=== PATIENT | male | born 1970 | race Caucasian/White ===

== ENCOUNTER 2018-03-11 15:54 | Observation (INO) | payer OTHER, SELFPAY ==
[2018-03-11] MEDS ORDERED: MORPHINE 4 MG/ML SYR ONE (17:44)
[2018-03-11] MEDS ORDERED: NS KCL 20MEQ 1,000 ML IV ONE (17:45)
[2018-03-11] MEDS ORDERED: ONDANSETRON 4 MG/2 ML VIAL ONE ×2 (17:45→20:37)
[2018-03-11 17:56] LABS: Urine Blood NEGATIVE (NEG); Urine Glucose NEGATIVE (NEG); Urine Protein NEGATIVE (NEG); Urine Specific Gravity 1.025 (1.005-1.030)
[2018-03-11 18:24] LABS: Urine Culture Reflex Order NOT NEEDED; Urine RBC <5 /HPF (NONE SEEN)
[2018-03-11 18:25] LABS: Urine Bacteria NONE SEEN /HPF (NONE SEEN)
[2018-03-11 19:05] LABS: Absolute Lymphocytes (CBC) 3.1 K/uL (0.7-4.9); Absolute Monocytes 0.6 K/uL (0.1-1.3); Absolute Neutrophil 4.3 K/uL (1.8-8.0); Basophils % 0.9 % (0-1.3); Eosinophils % 1.6 % (0-4.4); Hematocrit 47.7 % (39.6-49.0); Lymphocytes % 37.9 % (15.3-44.8); MCH 31.1 pg (27.0-35.0); MCV 92.5 fL (80-100); MPV 7.9 fL (7.6-11.3); Monocytes % 6.8 % (3.3-12.3); RBC Red Blood Cell Count 5.16 M/uL (4.33-5.43)
[2018-03-11 19:17] LABS: Potassium 3.8 mEq/L (3.6-5.0)
[2018-03-11 19:23] LABS: Albumin 4.6 g/dL (3.2-5.5); Bilirubin Direct 0.1 mg/dL (0-0.2); Bilirubin Total 0.6 mg/dL (0.3-1.2)
--- NOTE | 2018-03-11 20:11 | RAD REPORT ---
EXAM DESCRIPTION: CT - Abdomen Pelvis W Contrast - 03/11/2018 7:56 pm CLINICAL HISTORY: Abdominal pain. Epigastric pain for 1 month with nausea COMPARISON: None. TECHNIQUE: Computed axial tomography of the abdomen and pelvis was obtained. 100 cc Isovue-300 is ad ministered intravenously. Oral contrast was given. All CT scans are performed using dose optimization technique as appropriate and may include automated exposure control or mA/KV adjustment according to patient size. FINDINGS: The liver has a diminished attenuation consistent with fatty infiltration. Spleen, pancreas, adrenals and kidneys appear unremarkable. The appendix is not seen. There is no evidence of diverticulitis. The wall of the terminal ileum is borderline thickened. A small left inguinal hernia contains fat IMPRESSION: Borderline thickening of the wall of the terminal ileum may indicate inflammation
--- NOTE | 2018-03-11 20:32 | EDPHYS ---
Physician Documentation [facility] Name: Yrn Chakraborty Age: 47 yrs Sex: Male : 1970 Arrival Date: 03/11/2018 Time: 15:57 Bed 13 Private MD: Jose Luis Lopez ED Physician Herman Palma HPI: 03/11 18:36 This 47 yrs old Male presents to ER via Ambulatory with complaints of kdr Abdominal Pain. 18:36 The patient presents with abdominal pain in the epigastric area, in the upper abdomen. kdr Onset: The symptoms/episode began/occurred gradually, 1 month(s) ago, Has been intermittent but getting worse for about a month. The symptoms do not radiate. Associated signs and symptoms: Pertinent positives: nausea, Pertinent negatives: anorexia, blood in stools, chest pain, constipation, diarrhea, dysuria, fever, headache, hematuria, palpitations, shortness of breath, testicular pain. The symptoms are described as achy, burning, dull, intermittent, vague, waxing/waning. Modifying factors: The symptoms are alleviated by nothing, the symptoms are aggravated by food. Severity of pain: At its worst the pain was mild moderate just prior to arrival, in the emergency department the pain has improved moderately. The patient has experienced similar episodes in the past, a few times, Only in the last month. The patient has not recently seen a physician. 18:41 The patient reports a history of colitis about 20 years ago but none since. kdr Historical: - Allergies: 16:37 No Known Allergies; aj - PMHx: 16:37 Hypertension; aj - PSHx: 16:37 Cholecystectomy; elbow; wrists; Knee surgery; aj - Immunization history:: Adult Immunizations up to date. - Social history:: Smoking status: Patient/guardian denies using tobacco. ROS: 18:36 Constitutional: Negative for fever, chills, and weight loss, Eyes: Negative for injury, kdr pain, redness, and discharge, ENT: Negative for injury, pain, and discharge, Neck: Negative for injury, pain, and swelling, Cardiovascular: Negative for chest pain, palpitations, and edema, Respiratory: Negative for shortness of breath, cough, wheezing, and pleuritic chest pain, Back: Negative for injury and pain, : Negative for injury, bleeding, discharge, and swelling, MS/Extremity: Negative for injury and deformity, Skin: Negative for injury, rash, and discoloration, Neuro: Negative for headache, weakness, numbness, tingling, and seizure activity. Psych: Negative for depression, anxiety, suicide ideation, homicidal ideation, and hallucinations, Allergy/Immunology: Negative for hives, rash, and allergies, Endocrine: Negative for neck swelling, polydipsia, polyuria, polyphagia, and marked weight changes, Hematologic/Lymphatic: Negative for swollen nodes, abnormal bleeding, and unusual bruising. 18:36 Abdomen/GI: Positive for abdominal pain, nausea, diarrhea, abdominal cramps, Negative for constipation, abdominal distension, black/tarry stool, rectal pain, rectal bleeding, bowel incontinence. Exam: 18:36 Constitutional: This is a well developed, well nourished patient who is awake, alert, kdr and in no acute distress. Head/Face: Normocephalic, atraumatic. Eyes: Pupils equal round and reactive to light, extra-ocular motions intact. Lids and lashes normal. Conjunctiva and sclera are non-icteric and not injected. Cornea within normal limits. Periorbital areas with no swelling, redness, or edema. Neck: Trachea midline, no thyromegaly or masses palpated, and no cervical lymphadenopathy. Supple, full range of motion without nuchal rigidity, or vertebral point tenderness. No Meningismus. Chest/axilla: Normal chest wall appearance and motion. Nontender with no deformity. No lesions are appreciated. Cardiovascular: Regular rate and rhythm with a normal S1 and S2. No gallops, murmurs, or rubs. Normal PMI, no JVD. No pulse deficits. Respiratory: Lungs have equal breath sounds bilaterally, clear to auscultation and percussion. No rales, rhonchi or wheezes noted. No increased work of breathing, no retractions or nasal flaring. Back: No spinal tenderness. No costovertebral tenderness. Full range of motion. Skin: Warm, dry with normal turgor. Normal color with no rashes, no lesions, and no evidence of cellulitis. MS/ Extremity: Pulses equal, no cyanosis. Neurovascular intact. Full, normal range of motion. Neuro: Awake and alert, GCS 15, oriented to person, place, time, and situation. Cranial nerves II-XII grossly intact. Motor strength 5/5 in all extremities. Sensory grossly intact. Cerebellar exam normal. Normal gait. Psych: Awake, alert, with orientation to person, place and time. Behavior, mood, and affect are within normal limits. 18:36 Abdomen/GI: Inspection: abdomen appears normal, Bowel sounds: active, diminished, in all quadrants, Palpation: soft, mild abdominal tenderness, in the right upper quadrant and left upper quadrant, mass, is not appreciated, rebound tenderness, is not appreciated, voluntary guarding, is not appreciated, involuntary guarding, is not appreciated. Vital Signs: 16:37 BP 134 / 87; Pulse 94; Resp 20; Temp 97.5; Pulse Ox 96% on R/A; Weight 113.4 kg; Height aj 5 ft. 10 in. (177.80 cm); Pain 5/10; 18:40 BP 142 / 82; Pulse 90; Resp 18; Pulse Ox 98% on R/A; Pain 5/10; sg 20:15 BP 126 / 89; Pulse 66; Resp 18; Pulse Ox 97% on R/A; ea 21:00 BP 120 / 78; Pulse 68; Resp 18 S; Pulse Ox 99% on R/A; ea 22:00 BP 128 / 70; Pulse 68; Resp 18; Pulse Ox 99% on R/A; ea 23:40 BP 130 / 80; Pulse 70; Resp 19; Pulse Ox 100% on R/A; ea 16:37 Body Mass Index 35.87 (113.40 kg, 177.80 cm) MDM: 19:52 Patient medically screened. [facility] 03/12 11:42 Data reviewed: vital signs, nurses notes. Counseling: I had a detailed discussion with [facility] the patient and/or guardian regarding: the historical points, exam findings, and any diagnostic results supporting the discharge/admit diagnosis, lab results, radiology results. 03/11 17:29 Order name: Amylase, Serum; Complete Time: 19:24 [facility] 03/11 17:29 Order name: Basic Metabolic Panel; Complete Time: 19:24 [facility] 03/11 17:29 Order name: CBC with Diff; Complete Time: 19:24 [facility] 03/11 17:29 Order name: Creatinine for Radiology; Complete Time: 19:24 [facility] 03/11 17:29 Order name: Hepatic Function; Complete Time: 19:24 [facility] 03/11 17:29 Order name: Lipase; Complete Time: 19:24 kdr 03/11 17:29 Order name: Urine Microscopic Only; Complete Time: 18:35 kdr 03/11 17:40 Order name: Troponin (emerg Dept Use Only); Complete Time: 19:24 kdr 03/11 17:40 Order name: CT Abd/Pelvis - W/Contrast; Complete Time: 20:27 kdr 03/11 17:54 Order name: Urine Dipstick--Ancillary (enter results); Complete Time: 18:35 em1 03/11 17:29 Order name: IV Saline Lock; Complete Time: 17:42 kdr 03/11 17:29 Order name: Labs collected and sent; Complete Time: 17:42 kdr 03/11 17:29 Order name: Urine Dipstick-Ancillary (obtain specimen); Complete Time: 17:52 kdr 03/11 17:40 Order name: EKG Strip; Complete Time: 19:04 kdr 03/11 17:55 Order name: EKG Electrocardiogram EDMS 03/11 20:36 Order name: CONS Physician Consult EDMS Administered Medications: 03/11 18:51 Drug: morphine 4 mg Route: IVP; Site: right antecubital; iw 19:00 Follow up: Response: No adverse reaction; Pain is decreased ea 18:51 Drug: Zofran 4 mg Route: IVP; Site: right antecubital; iw 19:00 Follow up: Response: No adverse reaction ea 18:55 Drug: NS 0.45 % with KCl 20 mEq/L 1000 ml Route: IV; Rate: 125 ml/hr; Site: right sg antecubital; 20:35 Drug: Pepcid 20 mg Route: IVP; Site: right antecubital; ea 21:00 Follow up: Response: No adverse reaction ea 20:35 Drug: fentaNYL (PF) 50 mcg Route: IVP; Site: right antecubital; ea 21:00 Follow up: Response: No adverse reaction; Pain is decreased ea 20:35 Drug: Zofran 4 mg Route: IVP; Site: right antecubital; ea 21:00 Follow up: Response: No adverse reaction ea 20:35 Drug: Flagyl 500 mg Volume: 100 ml; Route: IVPB; Rate: 200 ml/hr; Infused Over: 30 ea mins; Site: right antecubital; 20:35 Drug: NS 0.9% 1000 ml Route: IV; Rate: 1 bolus; Site: right antecubital; ea 22:40 Follow up: Response: No adverse reaction; IV Status: Completed infusion ea 22:41 Drug: Cipro 400 mg Volume: 200 ml; Route: IVPB; Infused Over: 60 mins; Site: right ea antecubital; 23:00 Drug: fentaNYL (PF) 50 mcg Route: IVP; Site: right antecubital; ea 23:30 Follow up: Response: No adverse reaction; Pain is decreased ea Disposition: 03/11/18 20:32 Hospitalization ordered by Petra Merino for Observation. Preliminary diagnosis are Abdominal tenderness, Other and unspecified noninfective gastroenteritis and colitis. - Bed requested for Telemetry/MedSurg (observation). - Status is Observation. ea - Condition is Stable. - Problem is new. - Symptoms have improved. UTI on Admission? No Signatures: Dispatcher [employer] EDMS Shira Penaloza RN RN kl Gay, Steven RN Tanvi Montgomery RN Herman Gamez MD MD cha Rittger, Kevin, MD MD kdr Williams, Irene, RN RN iw Antunez, Elena, RN RN ea Corrections: (The following items were deleted from the chart) 22:36 20:32 Hospitalization Ordered by Petra Merino MD for Observation. Preliminary diagnosis is Abdominal tenderness; Other and unspecified noninfective gastroenteritis and colitis. Bed requested for Telemetry/MedSurg (observation). Status is Observation. Condition is Stable. Problem is new. Symptoms have improved. UTI on Admission? No. rosas 03/12 00:10 03/11 22:36 03/11/2018 20:32 Hospitalization Ordered by Petra Merino MD for ea Observation. Preliminary diagnosis is Abdominal tenderness; Other and unspecified noninfective gastroenteritis and colitis. Bed requested for Telemetry/MedSurg (observation). Status is Observation. Condition is Stable. Problem is new. Symptoms have improved. UTI on Admission? No. willie
--- NOTE | 2018-03-11 20:32 | ER ---
Nurse's Notes [facility] Name: Yrn Chakraborty Age: 47 yrs Sex: Male : 1970 Arrival Date: 03/11/2018 Time: 15:57 Bed 13 Private MD: Jose Luis Lopez Diagnosis: Abdominal tenderness;Other and unspecified noninfective gastroenteritis and colitis Presentation: 03/11 16:36 Presenting complaint: Patient states: Epigastric pain for 1 month with nausea and aj sweating that is worse after eating. Transition of care: patient was not received from another setting of care. Onset of symptoms was February 09, 2018. Care prior to arrival: None. 16:36 Method Of Arrival: Ambulatory aj 16:36 Acuity: PATSY 3 aj 19:58 Initial Sepsis Screen: Does the patient meet any 2 criteria? No. Patient's initial ea sepsis screen is negative. Does the patient have a suspected source of infection? No. Patient's initial sepsis screen is negative. Triage Assessment: 16:37 General: Appears in no apparent distress. comfortable, Behavior is calm, cooperative, aj appropriate for age. Pain: Complains of pain in epigastric area Pain currently is 5 out of 10 on a pain scale. at worst was 9 out of 10 on a pain scale. Neuro: Level of Consciousness is awake, alert, obeys commands, Oriented to person, place, time, situation, Appropriate for age. Respiratory: Airway is patent Respiratory effort is even, unlabored, Respiratory pattern is regular, symmetrical. GI: Reports upper abdominal pain, epigastric pain, nausea. Derm: Skin is intact, is healthy with good turgor, Skin is pink, warm \T\ dry. normal. Historical: - Allergies: 16:37 No Known Allergies; aj - PMHx: 16:37 Hypertension; aj - PSHx: 16:37 Cholecystectomy; elbow; wrists; Knee surgery; aj - Immunization history:: Adult Immunizations up to date. - Social history:: Smoking status: Patient/guardian denies using tobacco. Screenin:00 Abuse screen: Denies threats or abuse. Denies injuries from another. Nutritional sg screening: No deficits noted. Tuberculosis screening: No symptoms or risk factors identified. Never had TB. Fall Risk None identified. Assessment: 17:00 General: Appears in no apparent distress. comfortable, obese, well groomed, well sg developed, well nourished, Behavior is calm, cooperative, appropriate for age. Pain: Complains of pain in epigastric area Pain does not radiate. Quality of pain is described as crampy, sharp, stabbing. Neuro: No deficits noted. Cardiovascular: Heart tones S1 S2 present Capillary refill is brisk in bilateral fingers Patient's skin is warm and dry. Chest pain is denied. Respiratory: Airway is patent Respiratory effort is even, unlabored. GI: Abdomen is round obese, Bowel sounds present X 4 quads. Abd is soft X 4 quads Reports epigastric pain, nausea. : No signs and/or symptoms were reported regarding the genitourinary system. EENT: No signs and/or symptoms were reported regarding the EENT system. Derm: Skin is pink, warm \T\ dry. Musculoskeletal: No signs and/or symptoms reported regarding the musculoskeletal system. 19:04 Reassessment: pt requesting to take his PO Xanax from home, Dr. Leonardo notified and iw agrees to let pt take his home medication. 19:48 General: Appears in no apparent distress. comfortable, Behavior is calm, cooperative, ea appropriate for age. Pain: Complains of pain in left upper quadrant and right upper quadrant and epigastric area Pain does not radiate. Quality of pain is described as crampy, stabbing, Pain began one month ago. Neuro: Level of Consciousness is awake, alert, obeys commands, Oriented to person, place, time, situation. Cardiovascular: Heart tones S1 S2 present Patient's skin is warm and dry. Respiratory: Airway is patent Respiratory effort is even, unlabored. GI: Abdomen is obese, Bowel sounds present X 4 quads. Abd is soft X 4 quads Reports epigastric pain, nausea. : No signs and/or symptoms were reported regarding the genitourinary system. EENT: No signs and/or symptoms were reported regarding the EENT system. Derm: Skin is pink, warm \T\ dry. 20:30 Reassessment: Patient and/or family updated on plan of care and expected duration. Pain ea level reassessed. Patient is alert, oriented x 3, equal unlabored respirations, skin warm/dry/pink. Family at bedside. 21:45 Reassessment: Patient and/or family updated on plan of care and expected duration. Pain ea level reassessed. Patient is alert, oriented x 3, equal unlabored respirations, skin warm/dry/pink. Family at bedside. 22:00 Reassessment: Patient and/or family updated on plan of care and expected duration. Pain ea level reassessed. Patient is alert, oriented x 3, equal unlabored respirations, skin warm/dry/pink. 23:50 Reassessment: Patient and/or family updated on plan of care and expected duration. Pain ea level reassessed. Patient is alert, oriented x 3, equal unlabored respirations, skin warm/dry/pink. Report called to receiving nurse. Vital Signs: 16:37 BP 134 / 87; Pulse 94; Resp 20; Temp 97.5; Pulse Ox 96% on R/A; Weight 113.4 kg; Height aj 5 ft. 10 in. (177.80 cm); Pain 5/10; 18:40 BP 142 / 82; Pulse 90; Resp 18; Pulse Ox 98% on R/A; Pain 5/10; sg 20:15 BP 126 / 89; Pulse 66; Resp 18; Pulse Ox 97% on R/A; ea 21:00 BP 120 / 78; Pulse 68; Resp 18 S; Pulse Ox 99% on R/A; ea 22:00 BP 128 / 70; Pulse 68; Resp 18; Pulse Ox 99% on R/A; ea 23:40 BP 130 / 80; Pulse 70; Resp 19; Pulse Ox 100% on R/A; ea 16:37 Body Mass Index 35.87 (113.40 kg, 177.80 cm) ED Course: 15:57 Patient arrived in ED. rg4 15:57 Jose Luis Lopez MD is Private Physician. rg4 16:18 To Leonardo MD is Attending Physician. kdr 16:36 Triage completed. aj 16:37 Arm band placed on left wrist. Patient placed in an exam room. aj 17:19 Jonny Ash, RN is Primary Nurse. 17:52 EKG done, by power tool repair technician. reviewed by To Leonardo MD. 3 18:45 Initial lab(s) drawn, by va, sent to lab. Inserted saline lock: 20 gauge in right iw antecubital area, using aseptic technique. Blood collected. 19:52 Attending Physician role handed off by To Leonardo MD [facility] 19:52 Herman Palma MD is Attending Physician. [facility] 19:55 CT completed. Patient tolerated procedure well. Patient moved to CT. Patient moved back nj from CT. 19:55 Patient has correct armband on for positive identification. Placed in gown. Bed in low ea position. Call light in reach. Side rails up X 1. 19:56 CT Abd/Pelvis - W/Contrast In Process Unspecified. EDMS 20:24 Rose Lujan RN is Primary Nurse. ea 20:29 Petra Merino MD is Hospitalizing Provider. [facility] 03/12 00:00 No provider procedures requiring assistance completed. Patient admitted, IV remains in ea place. Administered Medications: 16 18:51 Drug: morphine 4 mg Route: IVP; Site: right antecubital; iw 19:00 Follow up: Response: No adverse reaction; Pain is decreased ea 18:51 Drug: Zofran 4 mg Route: IVP; Site: right antecubital; iw 19:00 Follow up: Response: No adverse reaction 18:55 Drug: NS 0.45 % with KCl 20 mEq/L 1000 ml Route: IV; Rate: 125 ml/hr; Site: right sg antecubital; 20:35 Drug: Pepcid 20 mg Route: IVP; Site: right antecubital; ea 21:00 Follow up: Response: No adverse reaction ea 20:35 Drug: fentaNYL (PF) 50 mcg Route: IVP; Site: right antecubital; ea 21:00 Follow up: Response: No adverse reaction; Pain is decreased ea 20:35 Drug: Zofran 4 mg Route: IVP; Site: right antecubital; ea 21:00 Follow up: Response: No adverse reaction ea 20:35 Drug: Flagyl 500 mg Volume: 100 ml; Route: IVPB; Rate: 200 ml/hr; Infused Over: 30 ea mins; Site: right antecubital; 20:35 Drug: NS 0.9% 1000 ml Route: IV; Rate: 1 bolus; Site: right antecubital; ea 22:40 Follow up: Response: No adverse reaction; IV Status: Completed infusion ea 22:41 Drug: Cipro 400 mg Volume: 200 ml; Route: IVPB; Infused Over: 60 mins; Site: right ea antecubital; 23:00 Drug: fentaNYL (PF) 50 mcg Route: IVP; Site: right antecubital; ea 23:30 Follow up: Response: No adverse reaction; Pain is decreased ea Outcome: 20:32 Decision to Hospitalize by Provider. rosas 03/12 00:00 Admitted to Med/surg accompanied by tech, via stretcher, Report called to Receiving ea nurse Condition: stable Instructed on the need for admit. 00:10 Patient left the ED. ea Signatures: Dispatcher [employer] EDJonny Layton, RN Tanvi Montgomery RN RN aj Anderson, Corey, MD MD cha Rittger, Kevin, MD MD kdr Williams, Irene, RN RN iw Garcia, Lauren rg4 Gilles Rg Elena RN Nikki Hahn ea 3
[2018-03-11] MEDS ORDERED: FENTANYL CITR 100 MCG/2 ML ONE ×2 (20:36→22:52)
[2018-03-11] MEDS ORDERED: NA CHLORIDE 0.9% 1,000 ML ONE (20:36)
[2018-03-11] MEDS ORDERED: METRONIDAZOLE 500mg IVPB 500 MG/100 ML BAG IV ONE (20:37)
[2018-03-11] MEDS ORDERED: CIPROFLOXACIN 400mg IV 400 MG/200 ML BAG IV ONE (20:37)
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
[2018-03-12 00:06] VITALS: BMI 36.5
[2018-03-12] MEDS ORDERED: NA CHLORIDE 0.9% 1,000 ML IV SCH (00:23)
[2018-03-12] MEDS ORDERED: ZOLPIDEM TARTRATE 5 MG TABLET PO ONE (01:27)
[2018-03-12] MEDS: ONDANSETRON 4 MG/2 ML VIAL IV PRN ×2 (01:48→08:10)
[2018-03-12] MEDS: METRONIDAZOLE 500mg IVPB 500 MG/100 ML BAG IV SCH ×2 (01:48→09:33)
[2018-03-12] MEDS: Morphine 2 MG/2 ML SYR IV PRN ×2 (01:48→08:09)
[2018-03-12 03:42] VITALS: O2SAT 95
[2018-03-12 04:07] LABS: Absolute Lymphocytes (CBC) 2.5 K/uL (0.7-4.9); Absolute Monocytes 0.5 K/uL (0.1-1.3); Absolute Neutrophil 3.1 K/uL (1.8-8.0); Basophils % 1.1 % (0-1.3); Eosinophils % 2.4 % (0-4.4); Hematocrit 42.9 % (39.6-49.0); Lymphocytes % 40.4 % (15.3-44.8); MCH 30.7 pg (27.0-35.0); MCV 92.1 fL (80-100); Monocytes % 7.2 % (3.3-12.3); RBC Red Blood Cell Count 4.65 M/uL (4.33-5.43)
[2018-03-12 04:46] LABS: Albumin 3.5 g/dL (3.2-5.5); Bilirubin Total 0.7 mg/dL (0.3-1.2); Potassium 3.7 mEq/L (3.6-5.0); Protein, Total 6.3 g/dL (6.0-8.3)
[2018-03-12 05:56] LABS: Magnesium 1.8 mg/dL (1.8-2.5)
[2018-03-12] MEDS ORDERED: MAGNESIUM SULFATE 1 gm IVPB 1 GM/100 ML BAG IV ONE (06:06)
[2018-03-12] MEDS ORDERED: POTASSIUM 25 MEQ EFFERV TAB PO ONE (06:07)
--- NOTE | 2018-03-12 07:42 | EKG ---
Test Date: 2018-03-11 Test Time: 17:46:44 Steward/Stewardess Deck: YENI MEASUREMENT RESULTS: Intervals: Rate: 69 NH: 178 QRSD: 114 QT: 380 QTc: 407 [place]: P: 60 NH: 178 QRS: 18 T: 41 INTERPRETIVE STATEMENTS: Normal sinus rhythm Normal ECG No previous ECG available for comparison Electronically Signed On 03-12-18 07:42:14 CDT by Alexis Salas
[2018-03-12] MEDS ORDERED: CIPROFLOXACIN 400mg IV 400 MG/200 ML BAG IV SCH (09:00)
[2018-03-12] MEDS ORDERED: ENOXAPARIN 40 MG/0.4 ML SQ SCH (09:00)
[2018-03-12] MEDS ORDERED: ACETAMINOPHEN 500 MG TAB PO PRN (11:50)
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
[2018-03-12 15:49] VITALS: BP 145/76; TEMP 97.4
--- NOTE | 2018-03-12 16:23 | EKG ---
Test Date: 2018-03-11 Test Time: 21:29:56 Pediatric Physical Therapist: JENNIFER MEASUREMENT RESULTS: Intervals: Rate: 66 ID: [id number] QRSD: 110 QT: 406 QTc: 425 Kiana: P: 56 ID: [id number] QRS: 0 T: 25 INTERPRETIVE STATEMENTS: Normal sinus rhythm with sinus arrhythmia Nonspecific T wave abnormality Abnormal ECG Compared to ECG 03/11/2018 17:46:44 T-wave abnormality now present Electronically Signed On 03-12-18 16:20:03 CDT by Anthony Dickson
== END 2018-03-12 18:01 | disposition home or self-care (01) ==
LOC: ER 15:54 → ERHOLD 20:33 → 4TH 22:51
PROVIDERS: ADMIT Internal Medicine; ATTEND Internal Medicine
DX: K50.00 Crohn's disease of small intestine without complications (principal); N17.9 Acute kidney failure, unspecified; I10 Essential (primary) hypertension; E66.9 Obesity, unspecified; Z68.36 Body mass index [BMI] 36.0-36.9, adult
CPT/HCPCS: 36415; 74177; 80048; 80053; 80076; 81003; 81015; 82150; 83690; 83735; 84484; 85025; 87045; 87046; 93005; 96361; 96374; 96375; 99285; G0378; J0744; J1650; J2270; J2405; J3010; J3475; J7030; Q9967

== ENCOUNTER 2018-03-16 13:52 | Emergency (ER) | payer SELFPAY ==
[2018-03-16] MEDS ORDERED: NA CHLORIDE 0.9% 1,000 ML ONE (15:36)
[2018-03-16 15:56] LABS: Absolute Monocytes 0.5 K/uL (0.1-1.3); Absolute Neutrophil 3.4 K/uL (1.8-8.0); Basophils % 1.2 % (0-1.3); Eosinophils % 1.9 % (0-4.4); Lymphocytes % 32.8 % (15.3-44.8); MCH 31.1 pg (27.0-35.0); MCV 90.9 fL (80-100); Monocytes % 8.3 % (3.3-12.3); RBC Red Blood Cell Count 5.17 M/uL (4.33-5.43)
[2018-03-16] MEDS ORDERED: MORPHINE 4 MG/ML SYR ONE ×2 (15:58→17:23)
[2018-03-16] MEDS ORDERED: ONDANSETRON 4 MG/2 ML VIAL ONE (15:59)
[2018-03-16 16:09] LABS: Potassium 3.9 mEq/L (3.6-5.0)
[2018-03-16 16:16] LABS: Albumin 4.2 g/dL (3.2-5.5); Bilirubin Direct 0.1 mg/dL (0-0.2); Bilirubin Total 0.6 mg/dL (0.3-1.2); Protein, Total 7.2 g/dL (6.0-8.3)
[2018-03-16 16:56] LABS: Urine Blood NEGATIVE (NEG); Urine Glucose NEGATIVE (NEG); Urine Protein NEGATIVE (NEG); Urine Specific Gravity 1.015 (1.005-1.030)
--- NOTE | 2018-03-16 17:55 | RAD REPORT ---
EXAM DESCRIPTION: CTAbdomen Pelvis W Contrast - 03/16/2018 5:48 pm CLINICAL HISTORY: Abdominal pain. COMPARISON: 03/11/2018 TECHNIQUE: Biphasic CT imaging of the abdomen and pelvis was performed with 100 ml non-ionic IV cont rast. All CT scans are performed using dose optimization technique as appropriate and may include automated exposure control or mA/KV adjustment according to patient size. FINDINGS: The lung bases are clear. Mild diffuse fatty liver. Cholecystectomy clips. The spleen, pancreas, adrenal glands and kidneys are within normal limits. No bowel obstruction, free air, free fluid or abscess. Several enlarged lymph nodes in the small [place] l mesentery noted. Mild edema is seen in the left-sided small bowel mesentery. A few of the small bow el loops are thickened in this region as well. The appendix is normal. No suspicious bony findings. Small fat containing left inguinal hernia. IMPRESSION: Mild mesenteric adenitis with small bowel enteritis pattern along the left aspect of the abdomen. Fatty liver.
--- NOTE | 2018-03-16 18:29 | ER ---
Nurse's Notes [facility] Name: Yrn Chakraborty Age: 47 yrs Sex: Male : 1970 Arrival Date: 03/16/2018 Time: 13:55 Bed 25 Private MD: Jose Luis Lopez Diagnosis: Unspecified abdominal pain;Nonspecific mesenteric lymphadenitis;Enteritis Presentation: 03/16 14:00 Presenting complaint: Patient states: "I came in last week and got admitted with an lk1 infection in my lower intestine. I was on an IV for a day and went home on antibiotics. I feel worse today than I did then. I feel very hot an weak.". Transition of care: patient was not received from another setting of care. Onset of symptoms was March 10, 2018. Risk Assessment: Do you want to hurt yourself or someone else? Patient reports no desire to harm self or others. Care prior to arrival: None. 14:00 Method Of Arrival: Ambulatory lk1 14:00 Acuity: PATSY 3 lk1 14:04 Initial Sepsis Screen: Does the patient meet any 2 criteria? HR > 90 bpm. No. Patient's lk1 initial sepsis screen is negative. Does the patient have a suspected source of infection? No. Patient's initial sepsis screen is negative. Triage Assessment: 16:10 General: Appears in no apparent distress. well developed, well nourished, Behavior is aj1 calm, cooperative. Pain: Complains of pain in abdomen. Neuro: Level of Consciousness is alert, obeys commands, Oriented to person, place, time, situation. Cardiovascular:. Respiratory: Airway is patent Respiratory effort is even, unlabored, Respiratory pattern is regular, symmetrical. GI: Abdomen is non-distended, Abd is soft X 4 quads Abdomen is tender to palpation in right upper quadrant and left upper quadrant. Derm: Skin is pink, warm \\T\\ dry. Historical: - Allergies: 14:01 No Known Allergies; lk1 - PMHx: 14:01 Hypertension; lk1 - PSHx: 14:01 Cholecystectomy; elbow; wrists; Knee surgery; lk1 - Immunization history:: Adult Immunizations up to date. - Social history:: Smoking status: Patient/guardian denies using tobacco. Screenin:09 Abuse screen: Denies threats or abuse. Nutritional screening: No deficits noted. aj1 Tuberculosis screening: No symptoms or risk factors identified. Fall Risk None identified. Assessment: 16:17 GI: Bowel sounds. rk2 16:18 Reassessment: Pt. resting in room \\T\\ this time... \\T\\ bedside. Pt. appears to be in rk 2 no obvious distress. Iv fluids infusing, pt. voiced no needs \\T\\ this time. GI: Abd is soft X 4 quads Abdomen is tender to palpation in right upper quadrant and left upper quadrant. 17:28 Reassessment: Pt. taken to CT by wheelchair. rk2 Vital Signs: 14:01 BP 125 / 87; Pulse 95; Resp 20; Temp 97.6(TE); Pulse Ox 97% on R/A; Weight 113.4 kg lk1 (R); Height 5 ft. 10 in. (177.80 cm) (R); Pain 8/10; 16:00 BP 147 / 100; Pulse 83; Resp 18; Pulse Ox 98% ; rk2 18:15 BP 134 / 84; Pulse 69; Resp 17; Pulse Ox 99% on R/A; rk2 14:01 Body Mass Index 35.87 (113.40 kg, 177.80 cm) lk1 ED Course: 13:55 Patient arrived in ED. mr 13:55 Jose Luis Lopez MD is Private Physician. mr 14:01 Triage completed. lk1 14:03 Arm band placed on right wrist. lk1 15:08 Rupert Lynn NP is PHCP. pm1 15:08 Bob Ni MD is Attending Physician. pm1 15:11 Suzanna Pollock RN is Primary Nurse. rk2 16:09 Patient has correct armband on for positive identification. Bed in low position. Call aj1 light in reach. 16:09 Inserted saline lock: 20 gauge in left upper arm, using aseptic technique. aj1 17:28 CT Abd/Pelvis - W/Contrast Sent. rk2 17:[address] via wheelchair. kw1 17:48 CT Abd/Pelvis - W/Contrast In Process Unspecified. EDMS 18:00 CT completed. Patient tolerated procedure well. Patient moved back from CT. kw1 18:28 John Werner MD is Referral Physician. pm1 19:28 No provider procedures requiring assistance completed. IV discontinued. rk2 Administered Medications: 15:47 Drug: NS 0.9% 1000 ml Route: IV; Rate: 1000 ml; Site: left upper arm; aj1 16:30 Follow up: Response: No adverse reaction; IV Status: Completed infusion rk2 16:06 Drug: morphine 4 mg Route: IVP; Site: left upper arm; aj1 16:54 Follow up: Response: No adverse reaction rk2 16:06 Drug: Zofran 4 mg Route: IVP; Site: left upper arm; aj1 16:54 Follow up: Response: No adverse reaction rk2 17:28 Drug: morphine 4 mg Route: IVP; Site: left upper arm; rk2 18:35 Follow up: Response: No adverse reaction rk2 19:04 Drug: Bentyl 20 mg Route: PO; rk2 19:27 Follow up: Response: No adverse reaction rk2 Outcome: 18:28 Discharge ordered by MD. pm1 19:28 Discharged to home ambulatory. rk2 19:28 Condition: good 19:28 Discharge instructions given to patient, Prescriptions given X 1. 19:30 Patient left the ED. rk2 Signatures: Dispatcher [employer] EDMS Belinda Chase, RN RN aj1 Mayra Ballard Leah, RN RN lk1 Rupert Lynn, RAMYA PODOPEDIATRICIAN pm1 Shira Piedra1 Suzanna Pollock RN RN rk2
--- NOTE | 2018-03-16 18:29 | EDPHYS ---
Physician Documentation [facility] Name: Yrn Chakraborty Age: 47 yrs Sex: Male : 1970 Arrival Date: 03/16/2018 Time: 13:55 Bed 25 Private MD: Jose Luis Lopez ED Physician Bob Ni HPI: 03/16 17:00 This 47 yrs old Male presents to ER via Ambulatory with complaints of pm1 Abdominal Pain. 17:00 The patient presents with abdominal pain in the upper abdomen. Onset: The pm1 symptoms/episode began/occurred 1 month(s) ago. The symptoms do not radiate. Associated signs and symptoms: Pertinent negatives: nausea, vomiting, and diarrhea, chest pain, constipation, dysuria, fever, shortness of breath. The symptoms are described as crampy. Modifying factors: The symptoms are alleviated by nothing, the symptoms are aggravated by nothing. Severity of pain: in the emergency department the pain is actually worse. The patient has been recently been admitted at [facility], was discharged last week. Patient seen 5 days ago and was admitted for observation for abdominal pain. 17:00 diagnosed with possible ileus. Was able to tolerate food and was discharged home with pm1 bland diet and cipro and flagyl. Patient reports worsening of his abdominal pain and presents to the ER for reevaluation. No nausea/vomiting/diarrhea. No fevers. compliant with antibiotics at home.. Historical: - Allergies: 14:01 No Known Allergies; lk1 - PMHx: 14:01 Hypertension; lk1 - PSHx: 14:01 Cholecystectomy; elbow; wrists; Knee surgery; lk1 - Immunization history:: Adult Immunizations up to date. - Social history:: Smoking status: Patient/guardian denies using tobacco. ROS: 17:00 Constitutional: Negative for fever, chills, and weight loss, Eyes: Negative for injury, pm1 pain, redness, and discharge, ENT: Negative for injury, pain, and discharge, Neck: Negative for injury, pain, and swelling, Cardiovascular: Negative for chest pain, palpitations, and edema, Respiratory: Negative for shortness of breath, cough, wheezing, and pleuritic chest pain. 17:00 Back: Negative for injury and pain, : Negative for injury, bleeding, discharge, and swelling, MS/Extremity: Negative for injury and deformity, Skin: Negative for injury, rash, and discoloration, Neuro: Negative for headache, weakness, numbness, tingling, and seizure. 17:00 Abdomen/GI: Positive for abdominal pain, Negative for nausea, vomiting, and diarrhea. Exam: 17:00 Constitutional: This is a well developed, well nourished patient who is awake, alert, pm1 and in no acute distress. Head/Face: Normocephalic, atraumatic. Neck: Trachea midline, no thyromegaly or masses palpated, and no cervical lymphadenopathy. Supple, full range of motion without nuchal rigidity, or vertebral point tenderness. No Meningismus. Chest/axilla: Normal chest wall appearance and motion. Nontender with no deformity. No lesions are appreciated. Cardiovascular: Regular rate and rhythm with a normal S1 and S2. No gallops, murmurs, or rubs. Normal PMI, no JVD. No pulse deficits. Respiratory: Lungs have equal breath sounds bilaterally, clear to auscultation and percussion. No rales, rhonchi or wheezes noted. No increased work of breathing, no retractions or nasal flaring. Back: No spinal tenderness. No costovertebral tenderness. Full range of motion. 17:00 Skin: Warm, dry with normal turgor. Normal color with no rashes, no lesions, and no evidence of cellulitis. MS/ Extremity: Pulses equal, no cyanosis. Neurovascular intact. Full, normal range of motion. 17:00 Abdomen/GI: Inspection: abdomen appears normal, Bowel sounds: normal, Palpation: soft, mild abdominal tenderness, in the right upper quadrant and left upper quadrant, mass, is not appreciated, rebound tenderness, is not appreciated. 17:00 Neuro: Orientation: is normal, Motor: is normal, moves all fours, Gait: is steady. Vital Signs: 14:01 BP 125 / 87; Pulse 95; Resp 20; Temp 97.6(TE); Pulse Ox 97% on R/A; Weight 113.4 kg lk1 (R); Height 5 ft. 10 in. (177.80 cm) (R); Pain 8/10; 16:00 BP 147 / 100; Pulse 83; Resp 18; Pulse Ox 98% ; rk2 18:15 BP 134 / 84; Pulse 69; Resp 17; Pulse Ox 99% on R/A; rk2 14:01 Body Mass Index 35.87 (113.40 kg, 177.80 cm) lk1 MDM: 15:11 Patient medically screened. pm1 18:15 Physician consultation: Alejandra Abdalla MD was contacted at 18:15, Evaluated the patient pm1 in the ER. Patient with the same presentation of abdominal pain from his discharge on 03/12. Patient instructed on continued bland dietary and continuation of antibiotics. Special discussion: Based on the patient's Hx, exam, and Dx evaluation, there is no indication for emergent surgery or inpatient Tx. It is understood by the patient/guardian that if the Sx's persist or worsen they need to return immediately for re-evaluation. 18:27 Data reviewed: vital signs. Data interpreted: Pulse oximetry: on room air is 98 %. pm1 Interpretation: normal. Counseling: I had a detailed discussion with the patient and/or guardian regarding: the historical points, exam findings, and any diagnostic results supporting the discharge/admit diagnosis, lab results, radiology results, the need for outpatient follow up, a internal investigator, to return to the emergency department if symptoms worsen or persist or if there are any questions or concerns that arise at home. 03/16 15:26 Order name: Amylase, Serum; Complete Time: 17:59 pm1 03/16 15:26 Order name: Basic Metabolic Panel; Complete Time: 17:59 pm1 03/16 15:26 Order name: CBC with Diff; Complete Time: 16:03 pm1 03/16 15:26 Order name: Creatinine for Radiology; Complete Time: 17:21 pm1 03/16 15:26 Order name: Hepatic Function; Complete Time: 17:59 pm1 03/16 15:26 Order name: Lipase; Complete Time: 17:59 pm1 03/16 15:26 Order name: IV Saline Lock; Complete Time: 15:48 pm1 03/16 15:27 Order name: CT Abd/Pelvis - W/Contrast; Complete Time: 17:59 pm1 03/16 16:34 Order name: Urine Dipstick--Ancillary (enter results); Complete Time: 17:21 bd 03/16 15:26 Order name: Labs collected and sent; Complete Time: 15:48 pm1 03/16 15:26 Order name: Urine Dipstick-Ancillary (obtain specimen); Complete Time: 16:43 pm1 Administered Medications: 15:47 Drug: NS 0.9% 1000 ml Route: IV; Rate: 1000 ml; Site: left upper arm; aj1 16:30 Follow up: Response: No adverse reaction; IV Status: Completed infusion rk2 16:06 Drug: morphine 4 mg Route: IVP; Site: left upper arm; aj1 16:54 Follow up: Response: No adverse reaction rk2 16:06 Drug: Zofran 4 mg Route: IVP; Site: left upper arm; aj1 16:54 Follow up: Response: No adverse reaction rk2 17:28 Drug: morphine 4 mg Route: IVP; Site: left upper arm; rk2 18:35 Follow up: Response: No adverse reaction rk2 19:04 Drug: Bentyl 20 mg Route: PO; rk2 19:27 Follow up: Response: No adverse reaction rk2 Disposition: 03/17 07:01 Co-signature as Attending Physician, Bob Ni MD. rn Disposition: 03/16/18 18:28 Discharged to Home. Impression: Unspecified abdominal pain, Nonspecific mesenteric lymphadenitis, Enteritis. - Condition is Stable. - Discharge Instructions: Mesenteric Adenitis, Pediatric, Abdominal Pain, Adult. - Prescriptions for Bentyl 20 mg Oral Tablet - take 2 tablets by ORAL route every 6 hours As needed; 20 tablet. - Medication Reconciliation Form, Thank You Letter, Antibiotic Education, Prescription Opioid Use, Work release form form. - Follow up: Emergency Department; When: As needed; Reason: Worsening of condition. Follow up: John Werner MD; When: 2 - 3 days; Reason: Recheck today's complaints, Continuance of care, Re-evaluation by your physician. - Problem is new. - Symptoms have improved. Signatures: Dispatcher [employer] EDMS Belinda Chase RN RN aj1 Bob Ni MD MD rn Kluge, Leah, RN RN lk1 Rupert Lynn, HUMAN RESOURCES ASSISTANT HUMAN RESOURCES ASSISTANT pm1 Suzanna Pollock RN RN rk2 Corrections: (The following items were deleted from the chart) 03/16 18:35 18:28 03/16/2018 18:28 Discharged to Home. Impression: Unspecified abdominal pain. pm1 Condition is Stable. Forms are Medication Reconciliation Form, Thank You Letter, Antibiotic Education, Prescription Opioid Use. Follow up: Emergency Department; When: As needed; Reason: Worsening of condition. Follow up: John Werner; When: 2 - 3 days; Reason: Recheck today's complaints, Continuance of care, Re-evaluation by your physician. Problem is new. Symptoms have improved. pm1 19:30 18:35 03/16/2018 18:28 Discharged to Home. Impression: Unspecified abdominal pain; rk2 Nonspecific mesenteric lymphadenitis; Enteritis. Condition is Stable. Forms are Medication Reconciliation Form, Thank You Letter, Antibiotic Education, Prescription Opioid Use. Follow up: Emergency Department; When: As needed; Reason: Worsening of condition. Follow up: John Werner; When: 2 - 3 days; Reason: Recheck today's complaints, Continuance of care, Re-evaluation by your physician. Problem is new. Symptoms have improved. pm1
[2018-03-16] MEDS ORDERED: DICYCLOMINE HCL 10 MG CAP ONE (19:03)
[2018-03-16 19:34] VITALS: TEMP 97.6
[2018-03-16 19:36] VITALS: BP 134/84; O2SAT 99
== END 2018-03-16 19:30 | disposition home or self-care (01) ==
LOC: ER 13:52
DX: I88.0 Nonspecific mesenteric lymphadenitis (principal); K52.9 Noninfective gastroenteritis and colitis, unspecified; I10 Essential (primary) hypertension
CPT/HCPCS: 36415; 74177; 80048; 80076; 81003; 82150; 83690; 85025; 96361; 96374; 96375; 99284; J2405; J7030; Q9967